=== PATIENT | male | born 2005 | race Caucasian/White ===

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

== ENCOUNTER 2025-02-14 12:07 | Emergency (ER) | payer OTHER ==
[~2025-02-14] VITALS: Ht 188 cm; Wt 136.1 kg
[2025-02-14 15:05] VITALS: BP 139/95
== END 2025-02-14 15:25 | disposition home or self-care (01) ==
LOC: ER 12:07
DX: S61.215A Laceration without foreign body of left ring finger without damage to nail, initial encounter (principal); Z23 Encounter for immunization; W26.0XXA Contact with knife, initial encounter
CPT/HCPCS: 11730; 13131; 73140; 90471; 90715; 99283-25